=== PATIENT | female | born 1975 | race American Indian/Alaskan Native ===

== ENCOUNTER 2017-02-18 05:39 | Inpatient (IN) | payer MEDICAID, OTHER ==
[2017-02-18 05:41] VITALS: O2SAT 95
[2017-02-18 05:43] VITALS: BMI 33.3
--- NOTE | 2017-02-18 05:46 | ED PDOC ---
Arrival/HPI - General Time Seen by Provider: 02/18/17 05:43 Historian: Patient - History of Present Illness Narrative History of Present Illness (Text): 02/18/17 05:43 Elodia Kauffman is a 41 year old female who presents to the emergency department for transfer for admission to psychiatry. Patient has no other complaints at this time. Time/Duration: Other Symptom Onset: Gradual Symptom Course: Unchanged Modifying Factors (Text): none Associated Symptoms (Text): none Past Medical History - Provider Review Nursing Documentation Reviewed: Yes Family/Social History - Physician Review Nursing Documentation Reviewed: Yes Family/Social History: No Known Family HX Allergies/Home Meds Allergies/Adverse Reactions: Allergies pollen extracts Allergy (Verified 02/19/17 01:52) CONGESTION Home Medications: Home Meds Medication Instructions Recorded Confirmed No Known Home Med 02/19/17 02/19/17 Review of Systems - Physician Review All systems were reviewed & negative as marked: Yes - Review of Systems Constitutional: absent: Fevers, Night Sweats Eyes: absent: Vision Changes ENT: absent: Hearing Changes Respiratory: absent: SOB, Cough Cardiovascular: absent: Chest Pain Gastrointestinal: absent: Abdominal Pain Genitourinary Female: absent: Dysuria Musculoskeletal: absent: Arthralgias, Back Pain Skin: absent: Rash, Pruritis Neurological: absent: Headache, Dizziness Endocrine: absent: Diaphoresis Hemo/Lymphatic: absent: Adenopathy Physical Exam Vital Signs Reviewed: Yes Vital Signs Pulse Resp BP Pulse Ox 02/18/17 05:41 70 18 109/66 95 - Systems Exam Head: Present: Atraumatic, Normocephalic Pupils: Present: PERRL Extroacular Muscles: Present: EOMI Conjunctiva: Present: Normal Mouth: Present: Moist Mucous Membranes Neck: Present: Normal Range of Motion Respiratory/Chest: Present: Clear to Auscultation, Good Air Exchange. No: Respiratory Distress, Accessory Muscle Use Cardiovascular: Present: Regular Rate and Rhythm, Normal S1, S2. No: Murmurs Abdomen: Present: Normal Bowel Sounds. No: Tenderness, Distention, Peritoneal Signs Back: Present: Normal Inspection Upper Extremity: Present: Normal Inspection. No: Cyanosis, Edema Lower Extremity: Present: Normal Inspection. No: Edema Neurological: Present: GCS=15, CN II-XII Intact, Speech Normal Skin: Present: Warm, Dry, Normal Color. No: Rashes Psychiatric: Present: Alert, Oriented x 3, Normal Insight, Normal Concentration Medical Decision Making ED Course and Treatment: 02/18/17 05:45 Impression: 41 year old female presents to emergency department for transfer for admission to psychiatry. Plan: -- Reassess and disposition Progress Notes: - Medication Orders Current Medication Orders: Acetaminophen (Tylenol 325mg Tab) 650 mg PO Q6H PRN PRN Reason: Pain, moderate (4-7) Last Admin: 02/21/17 12:45 Dose: 650 mg Re-Assess: MAR Pain/Vitals Document 02/21/17 13:45 CV (Rec: 02/21/17 14:50 CV [id number]) Pain Reassessment Is This A Pain ReAssessment? Yes Sleep Is patient sleeping during reassessment? No Presence of Pain Presence of Pain No Pain Scale Used Pain Scale Used Numeric Al Hydrox/Mg Hydrox/Simethicone (Maalox Plus 30 Ml) 30 ml PO DAILY PRN PRN Reason: Indigestion / Heartburn Albuterol/Ipratropium (Duoneb 3 Mg/0.5 Mg (3 Ml) Ud) 3 ml IH [id number] PRN PRN Reason: Shortness of Breath Citalopram Hydrobromide (Celexa) 10 mg PO DAILY [facility] Last Admin: 02/21/17 09:03 Dose: 10 mg Famotidine (Pepcid) 20 mg PO 1000,2200 [facility] Last Admin: 02/21/17 21:00 Dose: 20 mg Fenofibrate (Tricor) 48 mg PO DAILY [facility] Last Admin: 02/21/17 09:03 Dose: 48 mg Folic Acid (Folic Acid) 1 mg PO DAILY [facility] Last Admin: 02/21/17 09:01 Dose: 1 mg Guaifenesin (Robitussin) 200 mg PO Q4H PRN PRN Reason: Cough and congestion Last Admin: 02/21/17 16:52 Dose: 200 mg Loratadine (Claritin) 10 mg PO DAILY [facility] Last Admin: 02/21/17 09:03 Dose: 10 mg Lorazepam (Ativan) 1 mg PO Q3H PRN; Protocol PRN Reason: Seizure activity Last Admin: 02/20/17 21:32 Dose: 1 mg Behavioural Document 02/20/17 21:32 DC (Rec: 02/20/17 21:33 DC [id number]) Maintenance Maintenance Dose No Nonmedicinal Nonmedicinal Interventions Redirect Behavior Behavior for Medication: Anxiety Re-Assess: Reassess Psych Meds Document 02/20/17 22:32 DC (Rec: 02/20/17 22:45 DC [id number]) Reassess Psych Med Effective Magnesium Hydroxide (Milk Of Magnesia) 30 ml PO DAILY PRN PRN Reason: Constipation Last Admin: 02/21/17 21:01 Dose: 30 ml Multivitamins (Thera Tab) 1 tab PO 0800 [facility] Last Admin: 02/21/17 09:03 Dose: 1 tab Mupirocin (Bactroban Ointment) 0 gm TOP BID [facility] Last Admin: 02/21/17 16:54 Dose: 1 oin Nicotine (Nicoderm Cq) 1 patch TD DAILY [facility] Last Admin: 02/21/17 09:04 Dose: 1 patch Re-Assess: MAR Transdermal Patch Removal Document 02/21/17 21:03 KM (Rec: 02/21/17 21:03 KM [id number]) Transdermal Patch Removal Removal of Transdermal Patch done? Yes Risperidone (Risperdal Tab) 2 mg PO AMHS [facility] PRN Reason: Protocol Last Admin: 02/21/17 21:00 Dose: 2 mg Thiamine HCl (Vitamin B1 Tab) 100 mg PO DAILY [facility] Last Admin: 02/21/17 09:01 Dose: 100 mg Discontinued Medications Risperidone (Risperdal Tab) 0.25 mg PO HS [facility] PRN Reason: Protocol Last Admin: 02/19/17 21:38 Dose: 0.25 mg Behavioural Document 02/19/17 21:38 DCP (Rec: 02/19/17 21:38 DCP [id number]) Maintenance Maintenance Dose Yes Re-Assess: Reassess Psych Meds Document 02/19/17 22:38 DC (Rec: 02/20/17 07:16 DC [id number]) Reassess Psych Med Effective Risperidone (Risperdal Tab) 0.25 mg PO STAT STA PRN Reason: Protocol Stop: 02/18/17 13:21 Last Admin: 02/18/17 13:42 Dose: 0.25 mg Behavioural Document 02/18/17 13:42 CV (Rec: 02/18/17 13:42 CV [id number]) Maintenance Maintenance Dose Yes Nonmedicinal Nonmedicinal Interventions Therapeutic Communication Re-Assess: Reassess Psych Meds Document 02/18/17 14:42 CV (Rec: 02/18/17 15:56 CV [id number]) Reassess Psych Med Effective - Scribe Statement The provider has reviewed the documentation as recorded by the Scribmaegan Reece Provider Scribe Attestation: All medical record entries made by the Scribe were at my direction and personally dictated by me. I have reviewed the chart and agree that the record accurately reflects my personal performance of the history, physical exam, medical decision making, and the department course for this patient. I have also personally directed, reviewed, and agree with the discharge instructions and disposition. Disposition/Present on Arrival - Present on Arrival Any Indicators Present on Arrival: No - Disposition Have Diagnosis and Disposition been Completed?: Yes Diagnosis: Depression Disposition: HOSPITALIZED Disposition Time: 06:30 Condition: GOOD
[2017-02-18 08:13] LABS: HEMATOCRIT 34.8 % (36.0-48.0); MEAN CELL VOLUME 91.6 fl (80.0-105.0); MEAN CORPUSCULAR HEMOGLOBIN 30.8 pg (25.0-35.0); MEAN CORPUSCULAR HGB CONC 33.6 g/dl (31.0-37.0); MEAN PLATELET VOLUME 9.4 fl (7.0-11.0); RED CELL DISTRIBUTION WIDTH 12.1 % (11.5-14.5); WHITE BLOOD COUNT 7.2 10^3/ul (4.5-11.0)
[2017-02-18 08:23] LABS: ALB/GLOB RATIO 1.3 (1.1-1.8); ALKALINE PHOSPHATASE 71 U/L (38-126); ALT/SGPT 47 U/L (7-56); AST/SGOT 54 U/L (14-36); BILIRUBIN,TOTAL 0.2 mg/dL (0.2-1.3); BLOOD UREA NITROGEN 7 mg/dL (7-21); CALCIUM 9.5 mg/dL (8.4-10.5); CARBON DIOXIDE 25 mmol/L (21-33); CHLORIDE 107 mmol/L (98-107); CHOLESTEROL 122 mg/dL (130-200); GFR AFRICAN-AMERICAN > 60; GLUCOSE,FASTING 94 mg/dL (65-110); GLUCOSE,RANDOM 94 mg/dL (70-110); MAGNESIUM 1.8 mg/dL (1.7-2.2); PHOSPHOROUS 4.5 mg/dL (2.5-4.5); POTASSIUM 4.2 mmol/L (3.6-5.0); SODIUM 140 mmol/L (132-148); TOTAL PROTEIN 7.1 g/dL (5.8-8.3)
--- NOTE | 2017-02-18 11:11 | CP.PCM.CON ---
<Silvina Mayer - Last Filed: 02/18/17 13:33> History of Present Illness - History of Present Illness History of Present Illness: Medicine Consult note for Dr. Barrientos 41 year old female PMHx depression, alcohol abuse, substance abuse, and hyperlipidemia presents for psychiatric admission for depression and alcoholism. Patient reports she drinks a pint to half gallon of vodka when she can get it and her last drink was 2 days ago. She was tearful on exam and reported she was currently homeless and experiencing life stressors. Patient reports she was experiencing some dizziness and a mild tremor but denied any other acute complaints of fever/chills, headache, vision changes, cough, shortness of breath, chest pain, nausea/vomiting, abdominal pain, diarrhea/ constipation, changes in urination, weakness and fatigue. She reported she was eating well and is ambulating around the floor. PMHx: depression, alcohol abuse, substance abuse, hyperlipidemia PSurgHx: cholecystectomy ALL: NKDA Meds: Depakote, Tricor FamHx: none SocHx: Admits to using opiates, marijuana, and bharat dust; heroin in past. Occasional tobacco use. Homeless. Review of Systems - Review of Systems All systems: reviewed and no additional remarkable complaints except - Constitutional Constitutional: As Per HPI. absent: Chills, Fever - EENT Eyes: As Per HPI. absent: Blurred Vision Ears: As Per HPI, Dizziness Nose/Mouth/Throat: As Per HPI. absent: Sore Throat - Cardiovascular Cardiovascular: As Per HPI. absent: Chest Pain, Dyspnea, Edema - Respiratory Respiratory: As Per HPI. absent: Cough, Dyspnea, Chest Congestion - Gastrointestinal Gastrointestinal: As Per HPI. absent: Abdominal Pain, Constipation, Diarrhea, Nausea, Vomiting - Genitourinary Genitourinary: As Per HPI. absent: Dysuria, Pyuria - Menstruation Additional comments: LMP 02/13/17 - Musculoskeletal Musculoskeletal: As Per HPI. absent: Numbness, Tingling - Integumentary Integumentary: As Per HPI. absent: Dry Skin - Neurological Neurological: As Per HPI, Dizziness, Tremor (mild). absent: Numbness, Tingling - Psychiatric Psychiatric: As Per HPI, Depression - Endocrine Endocrine: As Per HPI. absent: Polydipsia, Polyuria - Hematologic/Lymphatic Hematologic: As Per HPI. absent: Easy Bleeding Past Patient History - Past Social History Smoking Status: Smoker Currrent Status Unknown - CARDIAC Hx Cardiac Disorders: No - PULMONARY Hx Respiratory Disorders: No - NEUROLOGICAL Hx Neurological Disorder: Yes Hx Seizures: Yes - HEENT Hx HEENT Problems: No - RENAL Hx Chronic Kidney Disease: No - ENDOCRINE/METABOLIC Hx Endocrine Disorders: No - HEMATOLOGICAL/ONCOLOGICAL Hx Blood Disorders: No - INTEGUMENTARY Hx Dermatological Problems: No - MUSCULOSKELETAL/RHEUMATOLOGICAL Hx Musculoskeletal Disorders: No - GASTROINTESTINAL Hx Gastrointestinal Disorders: No - GENITOURINARY/GYNECOLOGICAL Hx Genitourinary Disorders: No - PSYCHIATRIC Hx Anxiety: Yes Hx Depression: Yes Hx Substance Use: Yes (marijuana/pills) - SURGICAL HISTORY Hx Surgeries: Yes Hx Cholecystectomy: Yes - ANESTHESIA Hx Anesthesia: Yes Meds Allergies/Adverse Reactions: Allergies Allergy/AdvReac Type Severity Reaction Status Date / Time pollen extracts Allergy CONGESTION Verified 02/19/17 01:52 Physical Exam - Constitutional Appears: Unkempt - Head Exam Head Exam: ATRAUMATIC, NORMAL INSPECTION - Eye Exam Eye Exam: EOMI, Normal appearance, PERRL. absent: Conjunctival injection, Scleral icterus - ENT Exam ENT Exam: Mucous Membranes Dry - Neck Exam Neck exam: Positive for: Full Rom - Respiratory Exam Respiratory Exam: Clear to Auscultation Bilateral, NORMAL BREATHING PATTERN. absent: Accessory Muscle Use, Respiratory Distress - Cardiovascular Exam Cardiovascular Exam: REGULAR RHYTHM, RRR, +S1, +S2 - GI/Abdominal Exam GI & Abdominal Exam: Normal Bowel Sounds, Soft. absent: Tenderness - Extremities Exam Extremities exam: Positive for: normal inspection. Negative for: pedal edema, tenderness - Neurological Exam Neurological exam: Alert Additional comments: mild asterixis - Psychiatric Exam Psychiatric exam: Anxious - Skin Skin Exam: Dry, Intact Results - Vital Signs Recent Vital Signs: Last Vital Signs Temp Pulse 70 02/18/17 05:41 Resp 18 02/18/17 07:00 BP 109/66 02/18/17 05:41 Pulse Ox 95 02/18/17 05:41 - Labs Result Diagrams: 02/18/17 07:30 02/18/17 07:30 Labs: Laboratory Results - last 24 hr 02/18/17 02/18/17 02/18/17 07:30 07:30 07:30 WBC 7.2 RBC 3.80 Hgb 11.7 L Hct 34.8 L MCV 91.6 MCH 30.8 MCHC 33.6 RDW 12.1 Plt Count 288 MPV 9.4 Sodium 140 Potassium 4.2 Chloride 107 Carbon Dioxide 25 Anion Gap 12 BUN 7 Creatinine 0.6 L Est GFR ( Amer) > 60 Est GFR (Non-Af Amer) > 60 Random Glucose 94 Fasting Glucose 94 Calcium 9.5 Phosphorus 4.5 Magnesium 1.8 Total Bilirubin 0.2 AST 54 H ALT 47 Alkaline Phosphatase 71 Total Protein 7.1 Albumin 4.0 Globulin 3.1 Albumin/Globulin Ratio 1.3 Triglycerides 142 Cholesterol 122 L LDL Cholesterol Direct 62 HDL Cholesterol 32 TSH 3rd Generation 2.23 Assessment & Plan - Assessment and Plan (Free Text) Assessment: 41 year old female with past medical history of depression, alcohol abuse, substance abuse, and hyperlipidemia presents for depression and alcohol use. Medicine consulted for management of chronic disease Plan: Hx of alcohol abuse -Ativan 1mg po q3 prn for seizure -PO multivitamin, thiamine, folic acid -Encourage cessation -Alc/drug counseling -Monitor for withdrawal symptoms Hx of Hyperlipidemia -Lipid panel WNL -Continue home Tricor Depression -TSH WNL -Denies suicidal or homicidal ideations -Managed as per psych GI ppx: Pepcid 20mg po bid VTE ppx: patient is ambulating Diet: Heart healthy diet Medicine will sign off at this time Please reconsult as necessary Discussed with attending Dr. Iliana Mayer PGY2 <Radha Barrientos - Last Filed: 02/19/17 14:44> Meds - Medications Medications: Current Medications Acetaminophen (Tylenol 325mg Tab) 650 mg PO Q6H PRN PRN Reason: Pain, moderate (4-7) Last Admin: 02/18/17 21:12 Dose: 650 mg Al Hydrox/Mg Hydrox/Simethicone (Maalox Plus 30 Ml) 30 ml PO DAILY PRN PRN Reason: Indigestion / Heartburn Citalopram Hydrobromide (Celexa) 10 mg PO DAILY [facility] Last Admin: 02/19/17 08:14 Dose: 10 mg Famotidine (Pepcid) 20 mg PO 1000,2200 [facility] Last Admin: 02/18/17 21:12 Dose: 20 mg Fenofibrate (Tricor) 48 mg PO DAILY [facility] Last Admin: 02/19/17 08:16 Dose: 48 mg Folic Acid (Folic Acid) 1 mg PO DAILY [facility] Last Admin: 02/19/17 08:14 Dose: 1 mg Lorazepam (Ativan) 1 mg PO Q3H PRN; Protocol PRN Reason: Seizure activity Last Admin: 02/18/17 21:11 Dose: 1 mg Magnesium Hydroxide (Milk Of Magnesia) 30 ml PO DAILY PRN PRN Reason: Constipation Multivitamins (Thera Tab) 1 tab PO 0800 [facility] Nicotine (Nicoderm Cq) 1 patch TD DAILY [facility] Last Admin: 02/19/17 08:14 Dose: 1 patch Risperidone (Risperdal Tab) 0.25 mg PO HS [facility] PRN Reason: Protocol Last Admin: 02/18/17 21:12 Dose: 0.25 mg Thiamine HCl (Vitamin B1 Tab) 100 mg PO DAILY [facility] Last Admin: 02/19/17 08:13 Dose: 100 mg Results - Vital Signs Recent Vital Signs: Last Vital Signs Temp 97.7 F 02/19/17 06:58 Pulse 80 02/19/17 06:58 Resp 20 02/19/17 06:58 BP 106/52 L 02/19/17 06:58 Pulse Ox 95 02/18/17 05:41 - Labs Result Diagrams: 02/18/17 07:30 02/18/17 07:30 Labs: Laboratory Results - last 24 hr 02/18/17 02/18/17 07:30 19:50 Urine Color Yellow Urine Appearance Clear Urine pH 6.0 Ur Specific Hood 1.010 Urine Protein Negative Urine Glucose (UA) Negative Urine Ketones Negative Urine Blood Large H Urine Nitrate Negative Urine Bilirubin Negative Urine Urobilinogen 0.2 Ur Leukocyte Esterase Negative Urine RBC 20 - 25 Urine WBC 1 - 3 Ur Epithelial Cells 3 - 4 Urine HCG, Qual Negative RPR Nonreactive Attending/Attestation - Attestation I have personally seen and examined this patient.: Yes I have fully participated in the care of the patient.: Yes I have reviewed all pertinent clinical information: Yes Notes (Text): 02/19/17 14:40 Patient was seen and examined with curator medical museum. Agreed with resident assessment and plan. 41 yrs old female with PMHx depression, alcohol abuse, substance abuse, and hyperlipidemia is admitted to Psychiatric floor for depression. Patient has H/O alcohol abuse, no sign of alcohol withdrawal at this time.Monitor for alcohol withdrawal. UA is negative for UTI. There is no active medical issue at this time.We will sign off. Please call us back if any question. Management plan was discussed in detail with patient Education was provided.
--- NOTE | 2017-02-18 11:55 | PCM.BM ---
<Rommel Reyes - Last Filed: 02/18/17 11:50> Treatment Plan Problems - Problems identified on initial assessmt Hopelessness/helplessness Date Initiated: 02/18/17 Time Initiated: 10:00 Assessment reference: NA Status: Active Priority: 1 Comment: Due to her living situation ineffective coping Date Initiated: 02/18/17 Time Initiated: 10:00 Status: Active Priority: 2 Comment: poor coping skills. medication nonadherence Date Initiated: 02/18/17 Time Initiated: 10:00 Assessment reference: NA Status: Active Priority: 3 Poor sleep Date Initiated: 02/18/17 Time Initiated: 10:00 Assessment reference: NA Status: Active Homeless Date Initiated: 02/18/17 Time Initiated: 10:00 Assessment reference: NA Status: Active Treatment assets and liabiliti Patient Assests: cooperative, ADL independent, negotiates basic needs Patient Liabilities: live alone, poor support system, substance abuse - Milieu Protocol Maintain good personal hygiene: every shift Encourage regular showers, every shift Remind patient to perform daily oral care, every shift Assist patient to perform ADL's Maintain personal safety: every shift Educate patient to report safety concerns to staff, every shift Monitor environment for contraband/sharps Medication safety: Monitor for expected outcome, potential side effects: every shift, Assess barriers to learning: every shift, Assess readiness for medication education: every shift Discharge/Continuing Care - Education Needs Education Needs: Patient Medication, Patient Diagnosis/Disease Process, Patient Coping Skills, Patient Placement options, Patient Community resources, Patient Activities of Daily Living, Patient Personal Hygiene/Grooming, Patient Aftercare Safety Plan - Discharge Discharge Criteria: Free of Suicidal thoughts, Normal sleep pattern, Ability to care for self <Lizzie Lee - Last Filed: 02/18/17 16:16> Family Contact Family involvement: Famliy/SO not involved Family contact: Patient declines to allow family contact at present <Leida Huber - Last Filed: 02/25/17 11:31> - Diagnosis (1) Depression Status: Chronic Interventions: 02/25/17 11:24 Psychoeducation Psychopharmacology/adjustment of medications as needed/ monitoring possible side effects Evaluate pt on daily basis Compliance with medications and follow up appointments Suicide and homicide risk assessment and prevention Relapse prevention Reduction of symptoms Improve functional status Family involvement As outpatient: cognitive behavioral therapy (2) Alcohol abuse Status: Chronic Interventions: 02/25/17 11:26 Monitoring withdrawal symptoms Evaluate need for medical detoxification Pharmacotherapy for alcohol use Maintaining sobriety Relapse prevention Possible rehabilitation Motivational interviewing 12-step programs: AA meetings (3) 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 02/25/17 11:28
[2017-02-18] MEDS ORDERED: Magnesium Hydroxide Susp 30 ml UD PO PRN (13:09)
[2017-02-18 20:07] LABS: URINE BILIRUBIN NEGATIVE (NEGATIVE); URINE BLOOD LARGE (NEGATIVE); URINE GLUCOSE (UA) NEGATIVE (NEGATIVE); URINE KETONE NEGATIVE (NEGATIVE); URINE LEUKOCYTE ESTERASE NEGATIVE Leu/uL (NEGATIVE); URINE PROTEIN NEGATIVE mg/dL (<30 mg/dL); URINE UROBILINOGEN 0.2 E.U./dL (<1 E.U./dL)
[2017-02-18 20:12] LABS: URINE APPEARANCE CLEAR (CLEAR); URINE COLOR YELLOW (YELLOW)
[2017-02-18 20:13] LABS: URINE RBC 20 - 25 /hpf (0-2)
--- NOTE | 2017-02-19 14:52 | CP.PCM.PN ---
<Silvina Mayer - Last Filed: 02/20/17 15:30> Subjective - Date & Time of Evaluation Date of Evaluation: 02/19/17 Time of Evaluation: 16:00 - Subjective Subjective: Medicine note for Dr. Barrientos Patient seen and examined at bedside. Patient was complaining of a cough, post nasal drip, and congestion. She denied acute complaints of fever, chills, headache, dizziness, chest pain, SOB, abd pain, nausea, vomiting, bowel/bladder complaints, pain/swelling in her legs b/l. Patient was seen ambulating around the floors. Objective - Vital Signs/Intake and Output Vital Signs (last 24 hours): Temp Pulse Resp BP Pulse Ox 97.7 F 80 20 106/52 L 95 02/19/17 06:58 02/19/17 06:58 02/19/17 06:58 02/19/17 06:58 02/18/17 05:41 - Medications Medications: Current Medications Acetaminophen (Tylenol 325mg Tab) 650 mg PO Q6H PRN PRN Reason: Pain, moderate (4-7) Last Admin: 02/18/17 21:12 Dose: 650 mg Al Hydrox/Mg Hydrox/Simethicone (Maalox Plus 30 Ml) 30 ml PO DAILY PRN PRN Reason: Indigestion / Heartburn Citalopram Hydrobromide (Celexa) 10 mg PO DAILY [facility] Last Admin: 02/19/17 08:14 Dose: 10 mg Famotidine (Pepcid) 20 mg PO 1000,2200 [facility] Last Admin: 02/18/17 21:12 Dose: 20 mg Fenofibrate (Tricor) 48 mg PO DAILY [facility] Last Admin: 02/19/17 08:16 Dose: 48 mg Folic Acid (Folic Acid) 1 mg PO DAILY [facility] Last Admin: 02/19/17 08:14 Dose: 1 mg Lorazepam (Ativan) 1 mg PO Q3H PRN; Protocol PRN Reason: Seizure activity Last Admin: 02/18/17 21:11 Dose: 1 mg Magnesium Hydroxide (Milk Of Magnesia) 30 ml PO DAILY PRN PRN Reason: Constipation Multivitamins (Thera Tab) 1 tab PO 0800 [facility] Nicotine (Nicoderm Cq) 1 patch TD DAILY [facility] Last Admin: 02/19/17 08:14 Dose: 1 patch Risperidone (Risperdal Tab) 0.25 mg PO HS [facility] PRN Reason: Protocol Last Admin: 02/18/17 21:12 Dose: 0.25 mg Thiamine HCl (Vitamin B1 Tab) 100 mg PO DAILY [facility] Last Admin: 02/19/17 08:13 Dose: 100 mg - Labs Labs: 02/18/17 07:30 02/18/17 07:30 - Constitutional Appears: Non-toxic, No Acute Distress - Head Exam Head Exam: ATRAUMATIC, NORMAL INSPECTION, NORMOCEPHALIC - Eye Exam Eye Exam: EOMI, Normal appearance. absent: Conjunctival injection, Scleral icterus - ENT Exam ENT Exam: Mucous Membranes Moist - Neck Exam Neck Exam: Full ROM - Respiratory Exam Respiratory Exam: Clear to Ausculation Bilateral, NORMAL BREATHING PATTERN. absent: Accessory Muscle Use, Rales, Rhonchi, Wheezes, Respiratory Distress - Cardiovascular Exam Cardiovascular Exam: REGULAR RHYTHM, RRR, +S1, +S2 - Extremities Exam Extremities Exam: Normal Capillary Refill, Normal Inspection. absent: Pedal Edema - Neurological Exam Neurological Exam: Alert, Awake, Oriented x3 - Skin Skin Exam: Dry, Intact Assessment and Plan - Assessment and Plan (Free Text) Assessment: Medicine reconsulted for cough, congestion, and post nasal drip -Duoneb 3ml inh q6 prn -Robitussin 200mg po q4 for cough prn -Claritin 10mg po qdaily Discussed with Dr. Iliana Mayer PGY2 <Radha Barrientos - Last Filed: 02/20/17 15:51> Objective - Vital Signs/Intake and Output Vital Signs (last 24 hours): Temp Pulse Resp BP Pulse Ox 97.7 F 80 20 106/52 L 95 02/19/17 06:58 02/19/17 06:58 02/19/17 06:58 02/19/17 06:58 02/18/17 05:41 - Medications Medications: Current Medications Acetaminophen (Tylenol 325mg Tab) 650 mg PO Q6H PRN PRN Reason: Pain, moderate (4-7) Last Admin: 02/18/17 21:12 Dose: 650 mg Al Hydrox/Mg Hydrox/Simethicone (Maalox Plus 30 Ml) 30 ml PO DAILY PRN PRN Reason: Indigestion / Heartburn Albuterol/Ipratropium (Duoneb 3 Mg/0.5 Mg (3 Ml) Ud) 3 ml IH [id number] PRN PRN Reason: Shortness of Breath Citalopram Hydrobromide (Celexa) 10 mg PO DAILY [facility] Last Admin: 02/20/17 08:24 Dose: 10 mg Famotidine (Pepcid) 20 mg PO 1000,2200 [facility] Last Admin: 02/20/17 09:35 Dose: 20 mg Fenofibrate (Tricor) 48 mg PO DAILY [facility] Last Admin: 02/20/17 08:25 Dose: 48 mg Folic Acid (Folic Acid) 1 mg PO DAILY [facility] Last Admin: 02/20/17 08:24 Dose: 1 mg Guaifenesin (Robitussin) 200 mg PO Q4H PRN PRN Reason: Cough and congestion Last Admin: 02/19/17 15:38 Dose: 200 mg Loratadine (Claritin) 10 mg PO DAILY [facility] Last Admin: 02/20/17 08:24 Dose: 10 mg Lorazepam (Ativan) 1 mg PO Q3H PRN; Protocol PRN Reason: Seizure activity Last Admin: 02/20/17 15:21 Dose: 1 mg Magnesium Hydroxide (Milk Of Magnesia) 30 ml PO DAILY PRN PRN Reason: Constipation Multivitamins (Thera Tab) 1 tab PO 0800 [facility] Last Admin: 02/20/17 08:24 Dose: 1 tab Nicotine (Nicoderm Cq) 1 patch TD DAILY [facility] Last Admin: 02/20/17 08:24 Dose: 1 patch Risperidone (Risperdal Tab) 0.25 mg PO HS [facility] PRN Reason: Protocol Last Admin: 02/19/17 21:38 Dose: 0.25 mg Thiamine HCl (Vitamin B1 Tab) 100 mg PO DAILY [facility] Last Admin: 02/20/17 08:25 Dose: 100 mg - Labs Labs: 02/18/17 07:30 02/18/17 07:30 Attending/Attestation - Attestation I have personally seen and examined this patient.: Yes I have fully participated in the care of the patient.: Yes I have reviewed all pertinent clinical information, including history, physical exam and plan: Yes
[2017-02-19] MEDS ORDERED: Albuterol-Ipratrop 3 mg / 0.5 (3 ml) UD IH PRN (15:00)
[2017-02-19] MEDS: Multivitamin Therapeutic Tab PO SCH (15:38)
[2017-02-19] MEDS: guaiFENesin 200 mg/10 ml Syrup UD PO PRN (15:38)
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
[2017-02-20] MEDS: Multivitamin Therapeutic Tab PO SCH (08:24)
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
--- NOTE | 2017-02-20 20:32 | PCM.PYCHPN ---
Psychiatric Progress Note - Psychiatric Progress Note Patient seen today, length of contact: 20 Patient Chief Complaint: "I am doing OK " Problems Identified/Issues Discussed: Patient continues superficial and childlike, isolates and appears to have great processing issues when asked questions. The nursing staff have reported increasing irritability which seems related to her difficulty processing. She has difficulty calming down once she has escalated without medication. She continues to deny hallucinations with no symptoms of withdrawal noted. Medical Problems: Denied, medical consult ordered. Medication Change: Yes (Risperdal increased) Medical Record Reviewed: Yes
[2017-02-20] MEDS: guaiFENesin 200 mg/10 ml Syrup UD PO PRN (23:43)
[2017-02-21] MEDS: Multivitamin Therapeutic Tab PO SCH (09:03)
[2017-02-21] MEDS: guaiFENesin 200 mg/10 ml Syrup UD PO PRN (16:52)
--- NOTE | 2017-02-21 17:51 | PCM.PYCHPN ---
Psychiatric Progress Note - Psychiatric Progress Note Patient seen today, length of contact: 20 Patient Chief Complaint: "I came from the other hospital because I have depression and alcohol problems " Problems Identified/Issues Discussed: Patient is observed today socializing with other female patients, staff report less irritability in her interactions. Affectively there is improvement. Hygiene and grooming are adequate. Patient is focusing on her discharge plan, feels she needs to go into an inpatient program "for my problem with bharat dust and alcohol". Patient has not had any signs of withdrawal noted. Medical Problems: Denied, medical consult ordered. Medication Change: No Medical Record Reviewed: Yes
[2017-02-22] MEDS: Multivitamin Therapeutic Tab PO SCH (08:44)
[2017-02-22] MEDS: Alum-Mag Hydrox-Simethicone Susp (30 mL) PO PRN (15:11)
--- NOTE | 2017-02-22 21:09 | PCM.PYCHPN ---
Psychiatric Progress Note - Psychiatric Progress Note Patient seen today, length of contact: 20 Patient Chief Complaint: "I need to see the social services specialist " Problems Identified/Issues Discussed: Patient remains comfortable on the unit and takes part in unit activities. She continues to struggle with processing and staff reports she is easily frustrated and gets irritable. This may be a product of her learning disability rather than her mental health issues. She is focusing on discharge planning. She appears to be stabilizing. Medical Problems: Denied, medical consult ordered. Medication Change: No Medical Record Reviewed: Yes
[2017-02-23] MEDS: guaiFENesin 200 mg/10 ml Syrup UD PO PRN (00:26)
--- NOTE | 2017-02-23 08:55 | PCM.PYCHPN ---
Psychiatric Progress Note - Psychiatric Progress Note Patient seen today, length of contact: 25 MIN Patient Chief Complaint: "the same, okay" Problems Identified/Issues Discussed: I reviewed assessment and recent notes. I met with patient at bedside. Grooming is fair and patient is oriented to but indicates it is April. Patient isn't aware of what town she is but can tell me she is hospitalized at a "medical center". Reports that she is doing "the same, okay" since admission. Denies perceptual disturbance. Affect is constricted and patient doesn't appear to be responding to internal stimuli. She is tolerating her medications and denies any side effects, discomfort or pain. Patient doesn't appear to be in any distress. Staff notes indicate that patient has been comfortable on the unit and participates in unit activities. Fairly cooperative and more reasonable, though low frustration tolerance was noted, perhaps due to learning disability. Appears to be enjoying unit activities. There were no behavioral issues overnight. Diagnostic Results: Depressive Disorder Unspecified, Impaired Intellectual Functioning, Learning Disorder Unspecified, Alcohol Use Disorder Medication Change: Yes (Increased celexa to 20 mg po daily) Medical Record Reviewed: Yes Mental Status Examination - Cognitive Function Orientation: Person Attention: WNL - Mood Mood: Other ("the same, okay") - Affect Affect: Constricted - Speech Speech: Appropriate - Formal Thought Process Formal Thought Process: No Impairment Goal/Treatment Plan - Goal/Treatment Plan Progress Toward Problem(s) and Goals/Treatment Plan: * c/w current tx and plan * Increased celexa to 20 mg po daily for depression * No new labs over the weekend thus far * Vitals reviewed and noted below: Selected Entries 02/21/17 02/21/17 02/22/17 07:33 16:00 07:22 Temperature 97.9 F 98.1 F Pulse Rate 75 81 81 Respiratory 21 20 Rate Blood Pressure 110/63 125/67 92/50 L 02/22/17 16:00 Temperature Pulse Rate 89 Respiratory Rate Blood Pressure 103/59 L
[2017-02-23] MEDS: Multivitamin Therapeutic Tab PO SCH (09:11)
--- NOTE | 2017-02-24 08:31 | PCM.PYCHPN ---
Psychiatric Progress Note - Psychiatric Progress Note Patient seen today, length of contact: 25 MIN Patient Chief Complaint: "the same, okay" Problems Identified/Issues Discussed: I reviewed recent notes and met with patient at bedside. Grooming is unkempt and patient is oriented to month and year. Patient still isn't aware of what town she is in but can tell me she is hospitalized at a "medical center". She still reports that she is doing "the same" since admission. Denies perceptual disturbance. Affect is constricted and preoccupied. Patient doesn't appear to be responding to internal stimuli. She is tolerating her medications and denies any side effects or discomfort. Reports having some pain but cannot elaborate. Repeats "I don't know". Patient doesn't appear to be in any distress. Staff notes indicate that patient has been comfortable on the unit and participates in unit activities. Fairly cooperative and more reasonable, though low frustration tolerance was noted, perhaps due to learning disability. She is smiling more and appears to be enjoying unit activities. There were no behavioral issues overnight. Diagnostic Results: Depressive Disorder Unspecified, Impaired Intellectual Functioning, Learning Disorder Unspecified, Alcohol Use Disorder Medication Change: Yes (Increased celexa to 20 mg po daily on 02/23/17) Medical Record Reviewed: Yes Mental Status Examination - Cognitive Function Orientation: Person Attention: WNL - Mood Mood: Other ("the same, okay") - Affect Affect: Constricted - Speech Speech: Appropriate - Formal Thought Process Formal Thought Process: No Impairment Goal/Treatment Plan - Goal/Treatment Plan Progress Toward Problem(s) and Goals/Treatment Plan: * c/w current tx and plan * Increased celexa to 20 mg po daily for depression on 02/23/17 * No new labs over the weekend thus far * Vitals reviewed and noted below: Selected Entries 02/23/17 02/23/17 06:48 16:40 Temperature 98.2 F Pulse Rate 75 95 H Respiratory 19 Rate Blood Pressure 96/61 L 129/78
[2017-02-24] MEDS: Multivitamin Therapeutic Tab PO SCH (08:48)
[2017-02-25] MEDS: Multivitamin Therapeutic Tab PO SCH (09:07)
[2017-02-25] MEDS: Alum-Mag Hydrox-Simethicone Susp (30 mL) PO PRN (21:08)
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
[2017-02-26 07:04] VITALS: BP 105/66; PULSE 70; RESP 20; TEMP 97.6
[2017-02-26] MEDS: Multivitamin Therapeutic Tab PO SCH (09:03)
== END 2017-02-26 15:27 | disposition home or self-care (01) | DRG 430 ==
LOC: ED 05:39 → ERH 05:44 → PSYC 06:35
PROVIDERS: ADMIT Psychiatry & Neurology Addiction Medicine; ATTEND Psychiatry & Neurology Addiction Medicine
DX: F32.89 Other specified depressive episodes (principal); Z91.19 Patient's noncompliance with other medical treatment and regimen; E78.5 Hyperlipidemia, unspecified; F16.10 Hallucinogen abuse, uncomplicated; F10.20 Alcohol dependence, uncomplicated; F81.9 Developmental disorder of scholastic skills, unspecified; Z59.0 Homelessness; Z72.0 Tobacco use; Z79.899 Other long term (current) drug therapy; Z90.49 Acquired absence of other specified parts of digestive tract; Z91.048 Other nonmedicinal substance allergy status; R40.2412 Glasgow coma scale score 13-15, at arrival to emergency department; F19.10 Other psychoactive substance abuse, uncomplicated; Z86.69 Personal history of other diseases of the nervous system and sense organs; F41.9 Anxiety disorder, unspecified; R27.8 Other lack of coordination